=== PATIENT | male | born 1990 | race Caucasian/White ===

== ENCOUNTER → 2021-11-09 | Outpatient (CLI) | payer MEDICAID, SELFPAY ==
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
== END | disposition home or self-care (01) ==
LOC: MRI 08:10
PROVIDERS: Referring Provider Nurse Practitioner Family; Visit Provider Nurse Practitioner Family
DX: G62.9 Polyneuropathy, unspecified (principal); S06.9X9S Unspecified intracranial injury with loss of consciousness of unspecified duration, sequela; S81.801S Unspecified open wound, right lower leg, sequela; T79.A21S Traumatic compartment syndrome of right lower extremity, sequela; F17.200 Nicotine dependence, unspecified, uncomplicated; V89.2XXS Person injured in unspecified motor-vehicle accident, traffic, sequela; Z87.81 Personal history of (healed) traumatic fracture; Z86.14 Personal history of Methicillin resistant Staphylococcus aureus infection
CPT/HCPCS: 73718

== ENCOUNTER 2022-06-26 05:26 | Day surgery (SDC) | payer MEDICAID, SELFPAY ==
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
[2022-06-26] VITALS (8 sets, daily range): BP systolic 91–112; BP diastolic 54–75; PULSE 57–73; RESP 16–18; TEMP 36.2–36.8; O2SAT 95–100; BMI 22.1
[2022-06-26] MEDS: Lactated Ringers 1,000 ML 15 ML IV ×2 (06:25→10:57)
[2022-06-26] MEDS: Vancomycin IV 1,000 MG/200 ML BAG 200 MG IV (06:25)
[2022-06-26] MEDS: Mupirocin Ointment 22gm Tube 1 APPLIC (07:13)
[2022-06-26] MEDS: Lidocaine 2% /Epi 1:100 (20ml) 20 ML VIAL (07:13)
--- NOTE | 2022-06-26 07:30 | SCAR_PTH ---
PATIENT: HEDY ALVARENGA LOC: [facility] – [place] U#:[id number] AGE/SX: 31/M ROOM: RE06/26/[address]: Dr. Ignacio Savage MD : 1990 BED: DIS: 06/26/2022 SPEC #: [id number] RECD: 06/26/22 12:33 STATUS: ARIS HONORIO #: [id number] ERIC: 06/26/22 07:[address]: Ignacio Savage DEPT: SURGICAL PATHOLOGY RECD BY: Carli Foote Tissues: CICATRIX/SCAR Procedures: Surgery Specimen Level IV HEADER OPERATION: Surgical preparation leg with excisional debridement PRE-OP DIAGNOSIS: Traumatic compartment syndrome right leg, sequela, right tibial fracture, history MRSA, posttraumatic painful skin graft scar deformity TISSUE SUBMITTED: Painful skin graft scar deformity right lower leg MICROSCOPIC DIAGNOSIS Skin and tissue of right lower leg, excision: Cicatrix and focal elastosis. AM:merry 06/28/2022 MICROSCOPIC DESCRIPTION Slides are reviewed. GROSS DESCRIPTION Received in fixative is one container labeled with the patient's name and designated painful skin graft scar deformity right lower leg. The specimen consists of a piece of skin ellipse measuring 13 x 5 cm and up to 0.5 cm in thickness. A focal area of defect is noted measuring 1 cm in greatest dimension. No skin lesion is identified. Double Needle Operator sections are submitted in two cassettes. / SJ:merry 06/27/2022 TC:[address] [facility]: [id number]
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
--- NOTE | 2022-06-26 09:59 | DCINST_ITS ---
Discharge Instructions Diet Discharge Diet: No restrictions Activity Discharge Activity: May Shower (place plastic bag over right leg when showering.) and - (keep right leg elevated when sitting. minimize standing. weight bearing as tolerated.) May shower in (days): 1 (place plastic bag over right leg when showering.) Weight Bearing Status: Weight bearing as tolerated Keep extremity elevated above heart level: Right Leg Dressing / Incision Call your doctor if your incision/area has: Continuous Slow Oozing, Sudden Increased Bleeding, Increased Pain/ Swelling, Increased Redness, Foul Smelling Discharge and Swelling at the incision site Call your doctor if you observe: Fever of 101 or Higher, Coldness, Increased Pain, Shortness of breath, Chest pain, Calf discomfort and Uncontrolled pain Suture Line Care: - (After operative dressing changed in the office, begin applying antibiotic ointment to suture line daily.) Change Dressing in: leave in place till F/U (will change the operative dressing in the office.) Cleanse incision/area with: Soap & Water (may get the incision wet with soap and water after the drain is removed.) and Keep Dressing Clean & Dry (wear plastic bag over right leg when showering.) Drain: Suction (empty and record drainage output daily.) Additional Dressing/Incision Instructions:: Continue navin wrap compression for next 6 weeks. Follow Up Care Please Follow Up With: Ignacio Savage MD When: one week. call [phone] for appt. Test Results: Test results from this visit will be discussed in further detail at your follow- up appointment, if applicable. Discharge Plan Admission Primary Reason for Your Visit: excision painful skin graft scar contour deformity right lateral leg Attending Provider: Ignacio Savage Primary Care Provider: LALITA RESENDIZ Consulting Providers: VALERIA AGUILAR Discharge Orders/Prescriptions Prescriptions: New sulfamethoxazole-trimethoprim [Bactrim DS] 800-160 mg tablet 1 tab PO BID Qty: 30 0RF L.acidoph,saliva-B.bif-S.therm [Acidophilus Probiotic Blend] 175 mg capsule 1 cap PO DAILY Qty: 20 0RF oxycodone-acetaminophen [Percocet] 5-325 mg tablet 1 tab PO Q6H PRN (Reason: pain (scale score 7-10)) 7 Days Qty: 28 0RF Rx Instructions: 28 tabs (twenty-eight) Continued trazodone 50 mg tablet 50 - 100 mg PO QHS sertraline [Zoloft] 100 mg tablet 10 mg PO DAILY lamotrigine 150 mg tablet 125 mg PO BID sumatriptan succinate [Imitrex] 50 mg tablet 100 mg PO PRN PRN (Reason: MIGRAINES) pantoprazole 40 mg tablet,delayed release (DR/EC) 40 mg PO DAILY fluticasone propionate 50 mcg/actuation spray,suspension 1 spray INTRANASAL DAILY topiramate 50 mg tablet 100 mg PO BID Label Comments: TAKE 1 TABLET BY MOUTH TWICE DAILY loratadine 10 mg Capsule 10 mg PO DAILY albuterol sulfate 90 mcg/actuation Hfa Aerosol Inhaler 2 puff INHALATION Q6H PRN (Reason: ASTHMA) Referrals / Follow Up: LALITA RESENDIZ [Other] Ignacio Savage MD [Med Staff - Active Staff] - (followup one week.) Disposition Disposition (needs filled in before D/C Order can be placed): Home, Self Care
== END 2022-06-26 12:54 | disposition home or self-care (01) ==
LOC: SDC 05:27 → AC 05:27
PROVIDERS: Referring Provider Surgery; Visit Provider Surgery
PROC: (CPT 15002; principal; 2022-06-26 07:15)
DX: L90.5 Scar conditions and fibrosis of skin (principal); J42 Unspecified chronic bronchitis; R60.0 Localized edema; T79.A21S Traumatic compartment syndrome of right lower extremity, sequela; V89.2XXS Person injured in unspecified motor-vehicle accident, traffic, sequela; F17.200 Nicotine dependence, unspecified, uncomplicated; Z86.14 Personal history of Methicillin resistant Staphylococcus aureus infection
CPT/HCPCS: 15002; 00400; 88304; 87070; 87075; 87077; 87102; 87176; 87205; 87206; 88305; J7120; J2405

== ENCOUNTER → 2022-07-26 | Outpatient (CLI) | payer MEDICAID, SELFPAY ==
--- NOTE | 2022-07-26 | FLU_PTH ---
PATIENT: HEDY ALVARENGA LOC: [facility]#:[id number] AGE/SX: 31/M ROOM: RE07/26/[address]: SUZANNE Schmidt : 1990 BED: DIS: 07/26/2022 SPEC #: [id number] RECD: 07/26/22 14:59 STATUS: ARIS HONORIO #: [id number] ERIC: 07/26/22 00:[address]: Mayelin Medina NP DEPT: CYTOLOGY RECD BY: Carlos Root Tissues: CYST Procedures: Special Stain Group II Surgery Specimen Level IV Cytospin Fluid HEADER OPERATION: Right lower extremity cyst puncture at incision site PRE-OP DIAGNOSIS: Right lower extremity cyst TISSUE SUBMITTED: Right lower extremity cyst fluid for cytology DIAGNOSIS CYTOLOGY Right lower extremity cyst fluid for cytology (cytospin and cell block): Negative for malignant cells. See comment. TRUONG:merry 07/30/2022 COMMENT The specimen consists of skeletal muscle tissue and inflammatory cells consisting of lymphocytes and neutrophils. The findings are consistent with seroma. Correlation with clinical findings and appropriate follow up are necessary. CYTOLOGY STUDY Slides are reviewed. CYTOLOGY GROSS Received is 10 ml of red cloudy fluid labeled with the patient's name and and designated per the requisition as right lower extremity. Submitted for cytology preparation including cell block. / rg 07/29/2022 TC:5 CPT: 45391, 53278
--- NOTE | 2022-07-26 13:45 | US_ITS ---
PROCEDURE: Drainage of the lower extremity seroma. DATE OF EXAMINATION: 07/26/2022 INDICATION: Male, 31 years old. Seroma in the lower right leg following grafting. PHYSICIAN: Dr. KALPANA Hairston Under direct sonographic guidance, drainage of a seroma in the lower right leg was performed with a 5 Turkmen drainage catheter. 25 mL of red-tinged fluid was taken. US/Cyst Puncture IMPRESSION: Successful drainage of a seroma at the operative site. Electronically Signed: Asim Smith MD at 15:31 EST ,
[2022-07-26] MEDS: Lidocaine 2% (5ml sdv) 5 ML VIAL.MPF INFILT (14:30)
--- NOTE | 2022-07-26 14:54 | NURSING ---
Pt had 20mL serosanguinous drainage removed from right lower extremity seroma. Pt tolerated well. Drainage site was dressed with opsite. Pt instructed to leave opsite in place for 48 hours. Surgical wound was dressed with ABD and DULCE bandage. Pt denies questions after being given d/c instructions.
== END | disposition home or self-care (01) ==
LOC: US 13:44
PROVIDERS: Visit Provider Nurse Practitioner Family
DX: L76.33 Postprocedural seroma of skin and subcutaneous tissue following a dermatologic procedure (principal); Z98.890 Other specified postprocedural states
CPT/HCPCS: 10030; 88304; 76942; 88108; 88305; 88313

== ENCOUNTER → 2022-08-28 | Outpatient (CLI) | payer MEDICAID, SELFPAY ==
--- NOTE | 2022-08-28 10:23 | US_ITS ---
STUDY: SUPERFICIAL ULTRASOUND - RIGHT LATERAL LEG REASON FOR EXAM: Male, 32 years old. Seroma R lateral leg after excision painful scar -- Please culture any fluid obtained TECHNIQUE: A superficial ultrasound was performed with real-time and static grider-scale imaging. COMPARISON: Comparison is made with prior study 07/26/2022. FINDINGS: There is evidence of edematous tissue in the area of concern. No focal fluid collection for drainage is seen. US/Ext Non Vasc Limited/Soft Tiss IMPRESSION: Edematous tissue is seen. No fluid is present for drainage. Electronically Signed: Asim Smith MD at 15:44 EST ,
== END | disposition home or self-care (01) ==
PROVIDERS: Referring Provider Nurse Practitioner Family; Visit Provider Nurse Practitioner Family
DX: L76.34 Postprocedural seroma of skin and subcutaneous tissue following other procedure (principal)
CPT/HCPCS: 76882

== ENCOUNTER → 2022-10-03 | Outpatient (CLI) | payer MEDICAID, SELFPAY ==
--- NOTE | 2022-10-03 | IMM_PTH ---
PATIENT: HEDY ALVARENGA LOC: [facility]#:[id number] AGE/SX: 32/M ROOM: RE10/03/[address]: SUZANNE Schmidt : 1990 BED: DIS: 10/03/2022 SPEC #: [id number] RECD: 10/04/22 13:22 STATUS: DANGAlex REQ #: [id number] ERIC: 10/03/22 00:[address]: Mayelin Medina NP DEPT: IMMUNOHISTOCHEMISTRY RECD BY: Shalini Nj ENTERED: 10/04/22 13:24 SP TYPE: IMMUNO OTHR DR: Marisabel Primary Care Phys Tissues: Skin of lower extremity and hip Procedures: Tank Ret (add) CD3 (add) CD45 (add) CD5 (add) CD79A (add) CK20 (add) CK5-6 (add) CK7 (add) KI-67 (add) P53 (add) Vimentin (add) Pankeratin (initial) P40 (add) CD68 (ADD) PHYSICIAN & [address] [address] SPECIMEN INFORMATION: Tissue Source: Cyst fluid Clinical Info: Seroma Specimen Number: [id number] CPT code: 01694, 70125 x13 METHODOLOGY: Deparaffinized sections of prefer/formalin-fixed tissue or PAP/DQ stained slides are incubated with monoclonal/polyclonal antibodies/oligonucleotide probes. Localization is made via biotin free immunoperoxidase method. Appropriate controls are performed and reacted as expected. Results on target cell population are indicated in the following table: RESULTS: ANTIBODY / CLONE RESULT AE1-3 (AE1/AE3/PCK26) negative CK7 (OV-TL12/30) negative CK20 (KS20.8) negative Vimentin (V9) positive CD68 (KP-1) negative CALRET (polyclonal) negative CK5-6 (D5 & 1684) negative P40 (BC28) negative P53 (DO-7) negative Ki-67 (30-9) positive, <10% CD45 (RP2/18) positive CD3 (PS1) positive CD5 (SP10) positive CD79a (11E3) negative These tests were developed and their performance characteristics determined by [facility]. They may not have been cleared or approved by the U.[place]. Food and Drug Administration. The FDA has determined that such clearance or approval is not necessary. The above immunohistochemical/dualISH markers are ordered and reviewed by the Pathologist. INTERPRETATION: Fine needle aspiration, seroma cyst: No evidence of malignancy. AM:merry 10/08/2022
--- NOTE | 2022-10-03 | FLU_PTH ---
PATIENT: HEDY ALVARENGA LOC: [facility]#:[id number] AGE/SX: 32/M ROOM: RE10/03/[address]: SUZANNE Schmidt : 1990 BED: DIS: 10/03/2022 SPEC #: [id number] RECD: 10/03/22 13:09 STATUS: ARIS HONORIO #: [id number] ERIC: 10/03/22 00:[address]: Mayelin Medina NP DEPT: CYTOLOGY RECD BY: Carli Foote ENTERED: 10/03/22 13:09 SP TYPE: Fluid OTHR DR: Marisabel Primary Care Phys Tissues: CYST Procedures: Special Stain Group II Surgery Specimen Level IV Cytospin Fluid HEADER OPERATION: Cyst puncture RLE PRE-OP DIAGNOSIS: Seroma TISSUE SUBMITTED: Cyst fluid for cytology DIAGNOSIS CYTOLOGY Fine needle aspiration, seroma cyst (cytospin and cell block): Negative for malignant cells. See comment. AM:merry 10/04/2022 COMMENT The specimen contains polytypic lymphocytes and macrophages. Clinical correlation is suggested. Immunohistochemistry ([id number]) supports the above diagnosis. CYTOLOGY STUDY Slides are reviewed. CYTOLOGY GROSS Received is 20 ml of red cloudy fluid labeled with the patient's name and and designated per the requisition as cyst. Submitted for cytology preparation including cell block. / merry 10/03/2022 TC:5 CPT: 28735, 91909
--- NOTE | 2022-10-03 08:41 | US_ITS ---
STUDY: ULTRASOUND-GUIDED FLUID ASPIRATION RIGHT REASON FOR EXAM: Male, 32 years old. Seroma right lateral leg incision -- Fluid wave present right lateral leg incision TECHNIQUE: A small linear fluid collection was examined with ultrasound in the lateral portion of the right leg. Skin was prepped and draped in usual sterile fashion. Following local anesthetic application, a 5 [place] drainage catheter was placed into the fluid collection. 25 cc of blood-tinged fluid was aspirated. COMPARISON: None. US/Cyst Puncture IMPRESSION: Successful aspiration of a seroma in the lateral aspect of the right leg with aspiration of 25 cc of blood-tinged fluid. Electronically Signed: Asim Smith MD at 10:01 EDT ,
[2022-10-03] MEDS: Lidocaine 2% (20 ml mdv) 20 ML Vial INFILT (09:20)
== END | disposition home or self-care (01) ==
LOC: US 08:40
PROVIDERS: Referring Provider Nurse Practitioner Family; Visit Provider Nurse Practitioner Family
DX: L76.33 Postprocedural seroma of skin and subcutaneous tissue following a dermatologic procedure (principal); F17.200 Nicotine dependence, unspecified, uncomplicated; T79.A21S Traumatic compartment syndrome of right lower extremity, sequela; Z87.81 Personal history of (healed) traumatic fracture; Z98.890 Other specified postprocedural states; V89.2XXS Person injured in unspecified motor-vehicle accident, traffic, sequela
CPT/HCPCS: 88304; 76942; 87070; 87075; 87205; 88108; 88305; 88313; 88341; 88342